=== PATIENT | male | born 1985 ===

== ENCOUNTER 2021-09-27 14:04 | Inpatient (IN) | payer MEDICAID, OTHER ==
[~2021-09-27] VITALS: Ht 172.7 cm; Wt 224.5 kg
[2021-09-27] MEDS ORDERED: LACTATED RINGER'S 1,000 ML IV ONE (14:30)
[2021-09-27] MEDS ORDERED: ACETAMINOPHEN 500 MG TAB PO ONE (14:30)
[2021-09-27] MEDS ORDERED: DexAMETHasone SOD PHOS 10MG/1ML VIAL INJ IV ONE (14:30)
[2021-09-27 15:00] LABS: Hematocrit 50.7 % (41.0-53.0); Hemoglobin 16.8 g/dL (13.5-17.5); Mean Corpuscular Hemoglobin 28.1 pg (28.0-32.0); Mean Corpuscular Hgb Conc. 33.2 g/dL (32.0-36.0); Mean Corpuscular Volume 84.6 fL (80.0-100.0); Red Blood Cells 5.99 10^6/uL (4.5-5.90); Red Cell Distribution Width 16.3 % (11.8-14.3); White Blood Cell 26.8 10^3/uL (4.4-10.8)
[2021-09-27] MEDS ORDERED: LORazepam 2MG/ML-1ML VIAL IV ONE ×2 (15:00→16:00)
[2021-09-27 15:05] LABS: Basophils % (manual) 0 (0.0-2.0); Blast Cells 0; Eosinophils % (manual) 0 (0-7); Metamyelocytes % 0; Myelocytes % 0; Promyelocytes % 0
[2021-09-27 15:17] LABS: Albumin 2.4 g/dL (3.4-5.0); Calcium 8.1 mg/dL (8.5-10.1); Potassium 5.4 mmol/L (3.5-5.1)
[2021-09-27 15:18] LABS: INR 1.26 (0.9-1.15); Partial Thromboplastin Time 30.9 sec (23.6-33.0)
[2021-09-27 15:22] LABS: BUN/Creatinine Ratio 27.5; Bilirubin, Total 1.3 mg/dL (0.2-1.0); Total Protein 7.7 g/dL (6.4-8.2)
[2021-09-27 15:30] LABS: Band Neutrophils % (manual) 7; Lymphocytes % (manual) 9 (10.0-50.0); Monocytes % (manual) 4 (0-12); Reactive Lymphocytes 1
[2021-09-27] MEDS ORDERED: ROCURONIUM 10MG/ML 10ML VIAL IV ONE ×2 (16:24→16:30)
[2021-09-27] MEDS ORDERED: ETOMIDATE (2MG/ML) 20ML VIAL IV ONE ×2 (16:24→16:30)
[2021-09-27] MEDS ORDERED: MIDAZOLAM DRIP 50 mg/50mL 50 ML IV ONE (16:26)
[2021-09-27] MEDS ORDERED: fentaNYL Drip 2500mCg/250mlNS 250 ML IV ONE (16:31)
[2021-09-27] MEDS: MIDAZOLAM DRIP 50 mg/50mL 50 ML IV SCH (16:55)
[2021-09-27] MEDS: fentaNYL Drip 2500mCg/250mlNS 250 ML IV SCH (16:55)
[2021-09-27] MEDS ORDERED: VANCOMYCIN 1GM/250ML 250 ML IV ONE (17:45)
[2021-09-27] MEDS ORDERED: CEFEPIME 1 GM in SODIUM CHL 0.9% 50 ML IV ONE (17:45)
[2021-09-27] MEDS: ASPirin 325 MG TAB NG ONE ×2 (18:29→22:30)
[2021-09-27 18:50] VITALS: BP 108/51
[2021-09-27 19:29] LABS: Lactic Acid w/Reflex 2.8 mmol/L (0.4-2.0)
[2021-09-27] MEDS: PROPOFOL 100 ML IV SCH (20:00)
[2021-09-27] MEDS ORDERED: NOREPINEPHRINE 8 MG/250ML KIT 250 ML IV SCH (21:15)
[2021-09-27 21:38] VITALS: BP 75/50
[2021-09-28 02:02] VITALS: BP 113/61
[2021-09-28 06:35] VITALS: BP 125/53
[2021-09-28] MEDS: PROPOFOL 100 ML IV SCH (07:21)
[2021-09-28] MEDS ORDERED: SODIUM CHLORIDE 0.9% 1,000 ML IV ONE (08:30)
[2021-09-28] MEDS ORDERED: VANCOMYCIN PER PHARMACY 0 MG IV SCH (08:30)
[2021-09-28] MEDS ORDERED: VANCOMYCIN 1GM/250ML 250 ML IV ONE (08:45)
[2021-09-28 11:29] LABS: Basophils # (auto) 0.2 10 ^3/uL (0-0.2); Basophils % (auto) 0.8 % (0.0-2.0); Eosinophils # (auto) 0 10 ^3/uL (0-0.8); Eosinophils % (auto) 0.1 % (0.0-7.0); Hematocrit 48.5 % (41.0-53.0); Hemoglobin 15.1 g/dL (13.5-17.5); Lymphocytes # (auto) 1.1 10 ^3/uL (0.4-5.4); Lymphocytes % (auto) 5.1 % (10.0-50.0); Mean Corpuscular Hemoglobin 27.1 pg (28.0-32.0); Mean Corpuscular Hgb Conc. 31.1 g/dL (32.0-36.0); Mean Corpuscular Volume 86.9 fL (80.0-100.0); Monocytes # (auto) 1.6 10 ^3/uL (0-1.3); Monocytes % (auto) 7.3 % (0.0-12.0); Neutrophils # (auto) 19.5 10 ^3/uL (1.6-8.6); Neutrophils % (auto) 86.7 % (37.0-80.0); Red Blood Cells 5.58 10^6/uL (4.5-5.90); Red Cell Distribution Width 16.8 % (11.8-14.3); White Blood Cell 22.5 10^3/uL (4.4-10.8)
[2021-09-28] MEDS ORDERED: CEFEPIME 2 GM in SODIUM CHL 0.9% 50 ML IV SCH (12:00)
[2021-09-28] MEDS ORDERED: DexAMETHasone SOD PHOS 10MG/1ML VIAL INJ IV ONE (12:45)
[2021-09-28] MEDS ORDERED: MORPHINE SULFATE INJECTION 2 MG/ML SYRG IV PRN (12:45)
[2021-09-28] MEDS ORDERED: NITROGLYCERIN 0.4 MG SL TAB SL PRN (12:45)
[2021-09-28 13:46] LABS: Anion Gap 10 (5-15); Carbon Dioxide 21 mmol/L (21-32); Chloride 98 mmol/L (98-107); Glucose 191 mg/dL (74-106); Sodium 129 mmol/L (136-145)
[2021-09-28 13:47] LABS: Alanine Aminotransferase 52 U/L (16-61); Albumin 2.2 g/dL (3.4-5.0); Alkaline Phosphatase 111 U/L (45-117); Aspartate Aminotransferase 112 U/L (15-37); Bilirubin, Total 1.7 mg/dL (0.2-1.0); Blood Urea Nitrogen 69 mg/dL (7-18); Calcium 7.3 mg/dL (8.5-10.1); GFR African American 28 mL/min; GFR Non-African American 23 mL/min; Total Protein 7.6 g/dL (6.4-8.2)
[2021-09-28 13:49] LABS: Potassium 7.2 mmol/L (3.5-5.1)
[2021-09-28] MEDS ORDERED: ALBUMIN 25% 100 ML IV ONE (14:00)
[2021-09-28] MEDS ORDERED: ALBUTEROL SULF 2.5 MG/0.5ML(0.5%) NEB SOLN NEB ONE (14:00)
[2021-09-28] MEDS ORDERED: SODIUM ZIRCONIUM CYCL 10 GM PAK PO SCH (14:00)
[2021-09-28] MEDS ORDERED: HEPARIN SODIUM (PORCINE) 5000 UNITS/ML 1ML VIAL IV ONE (14:00)
[2021-09-28] MEDS ORDERED: SODIUM ZIRCONIUM CYCL 10 GM PAK PO ONE (14:00)
[2021-09-28] MEDS ORDERED: FUROSEMIDE 40 MG/4 ML VIAL IV ONE (14:00)
[2021-09-28] MEDS ORDERED: SODIUM BICARBONATE 8.4% INJ 50ML SYRINGE IV ONE (14:00)
[2021-09-28] MEDS ORDERED: DEXTROSE (50%) 50ML SYRG IV ONE (14:00)
[2021-09-28] MEDS ORDERED: HEPARIN DRIP/D5W 100UNITS/ML 250 ML IV SCH (14:00)
[2021-09-28] MEDS ORDERED: CALCIUM CHL 100MG/ML 1,000 MG in D5W 5% 100 ML IV ONE (14:00)
[2021-09-28] MEDS ORDERED: InsuLIN REG 1unit/0.01ml Soln (100units/ml) IV ONE (14:00)
[2021-09-28 14:35] VITALS: BP 127/30
[2021-09-28] MEDS ORDERED: PHENYLEPHRINE IV 250 ML IV ONE (15:46)
[2021-09-28] MEDS ORDERED: PHENYLEPHRINE IV 250 ML IV SCH (16:00)
[2021-09-28] MEDS: CALCIUM GLUC 1,000mg/50ml-NS 50 ML IV ONE ×2 (16:04→16:14)
[2021-09-28] MEDS: DEXTROSE (50%) 50ML SYRG IV ONE ×2 (16:04→16:14)
[2021-09-28] MEDS: InsuLIN REG 1unit/0.01ml Soln (100units/ml) IV ONE ×2 (16:05→16:18)
[2021-09-28] MEDS: MIDAZOLAM DRIP 50 mg/50mL 50 ML IV SCH (16:30)
[2021-09-28] MEDS: fentaNYL Drip 2500mCg/250mlNS 250 ML IV SCH (16:30)
[2021-09-28 16:39] LABS: INR 1.21 (0.9-1.15); Partial Thromboplastin Time 34.2 sec (23.6-33.0)
[2021-09-28 18:14] LABS: Hematocrit 48.8 % (41.0-53.0); Hemoglobin 15.3 g/dL (13.5-17.5); Mean Corpuscular Hemoglobin 27.5 pg (28.0-32.0); Mean Corpuscular Hgb Conc. 31.5 g/dL (32.0-36.0); Mean Corpuscular Volume 87.6 fL (80.0-100.0); Red Blood Cells 5.57 10^6/uL (4.5-5.90); Red Cell Distribution Width 16.8 % (11.8-14.3); White Blood Cell 27.9 10^3/uL (4.4-10.8)
[2021-09-28 18:24] LABS: Basophils % (manual) 0 (0.0-2.0); Blast Cells 0; Metamyelocytes % 0; Myelocytes % 0; Promyelocytes % 0; Reactive Lymphocytes 0
[2021-09-28 18:29] LABS: INR 1.18 (0.9-1.15); Partial Thromboplastin Time 49.2 sec (23.6-33.0)
[2021-09-28 18:30] VITALS: BP 72/26
[2021-09-28] MEDS ORDERED: BUMETANIDE 2.5mg/10ml (0.25 mg/ml) INJ IV ONE (18:30)
[2021-09-28] MEDS ORDERED: SODIUM CHLORIDE 0.9% 2,000 ML IV ONE (18:30)
[2021-09-28] MEDS ORDERED: EPINEPHrine HCL 1 MG/10 ML SYRG IV ONE (18:38)
[2021-09-28 19:15] LABS: Band Neutrophils % (manual) 11; Eosinophils % (manual) 1 (0-7); Lymphocytes % (manual) 9 (10.0-50.0); Monocytes % (manual) 5 (0-12)
[2021-09-28] MEDS ORDERED: ALBUMIN 25% 100 ML IV SCH (22:00)
[2021-09-29] MEDS ORDERED: CEFEPIME 2 GM in SODIUM CHL 0.9% 50 ML IV SCH ×2
[2021-09-29] MEDS ORDERED: DexAMETHasone SOD PHOS 10MG/1ML VIAL INJ IV SCH (10:00)
== END 2021-09-28 18:39 | DRG 720 ==
LOC: ER 14:04 → OVERFLOW 09-28 12:41
PROVIDERS: ADMIT Hospitalist; ATTEND Hospitalist
PROC: 5A1935Z Respiratory Ventilation, Less than 24 Consecutive Hours (ICD-10-PCS; 2021-09-27)
PROC: 5A09357 Assistance with Respiratory Ventilation, Less than 24 Consecutive Hours, Continuous Positive Airway Pressure (ICD-10-PCS; 2021-09-27)
PROC: 0BH17EZ Insertion of Endotracheal Airway into Trachea, Via Natural or Artificial Opening (ICD-10-PCS; 2021-09-27)
PROC: 06HM33Z Insertion of Infusion Device into Right Femoral Vein, Percutaneous Approach (ICD-10-PCS; principal; 2021-09-28)
DX: A41.89 Other specified sepsis (principal); J96.01 Acute respiratory failure with hypoxia; N17.0 Acute kidney failure with tubular necrosis; J12.82 Pneumonia due to coronavirus disease 2019; R65.21 Severe sepsis with septic shock; D69.6 Thrombocytopenia, unspecified; U07.1 COVID-19; N18.4 Chronic kidney disease, stage 4 (severe); E87.1 Hypo-osmolality and hyponatremia; E66.2 Morbid (severe) obesity with alveolar hypoventilation; I5A Non-ischemic myocardial injury (non-traumatic); E87.5 Hyperkalemia; J90 Pleural effusion, not elsewhere classified; R74.01 Elevation of levels of liver transaminase levels; R79.89 Other specified abnormal findings of blood chemistry; D89.839 Cytokine release syndrome, grade unspecified; E88.09 Other disorders of plasma-protein metabolism, not elsewhere classified; Z86.74 Personal history of sudden cardiac arrest; Z68.45 Body mass index [BMI] 70 or greater, adult
CPT/HCPCS: 31500; 36415; 36556; 36600; 71045; 76775; 80053; 82728; 82805; 82962; 83605; 83880; 84132; 84484; 85007; 85025; 85027; 85379; 85610; 85730; 86141; 87040; 87426; 93306; 93925; 93970; 94002; 94003; 94640; 94660; 96365; 96366; 96367; 96375; 99152; 99153; 99291; G0378; J1100; J1815; J2250; J2704; J7060; P9047